=== PATIENT | male | born 1940 | race Caucasian/White ===

== ENCOUNTER 2016-04-29 06:03 | Emergency (ER) | payer OTHER ==
--- NOTE | 2016-04-29 06:39 | ED NURSING NOTES ---
Clinical Report - Nurses [facility] [address] [place] [address] 04/29/2016 6:04 Patient: EFREN VILLEGAS TRIAGE Triage time 06:15. Acuity: LEVEL 4. Chief Complaint: BACK PAIN and WEAKNESS (Efren says he has been having "sciatic-type back pain" that is acting up causing him to fall yesterday x 2 and once this AM. He was seen in our ER last January and given Tramadol and Ibuprofen (he says they provide mild relief); he did see his PCP and was prescribed Gabapentin. He presents to the ED c/o lower back pain radiating to both legs and weakness. Did not hit head when falling, did not loss consciousness.). Alert. No acute distress. SEPSIS SCREEN: Sepsis Screen: negative. Negative (no infection suspected/documented). --06:21 Wolfgang Conley R.N. 06:12 04/29/16. BP: 117/74 (regular adult cuff) taken on the left arm, via an automated monitor, while sitting. HR: 77 (normal rate). RR: 16 (regular, unlabored and normal). O2 saturation: 100% on room air. Temp: 98.1 F (oral). Pain level now: 12/25. --06:21 Wolfgang Conley R.N. Weight: 102 kg stated. Height/Length: 71 inches Per Patient. BMI: 31.4. --06:17 Wolfgang Conley R.N. Medications Allopurinol Oral 100 mg, daily. Atenolol Oral 25 mg, daily. Crestor Oral 5 mg, daily. --06:17 Wolfgang Conley R.N. Gabapentin Oral (Capsule 300 mg) 1 capsule, at bedtime. --06:18 Wolfgang Conley R.N. TraMADol HCl Oral (Tablet 50 mg), daily as needed. --06:18 Wolfgang Conley R.N. Medication/allergy information source: the patient. --06:21 Wolfgang Conley R.N. Allergies No Known Drug Allergy. --06:17 Wolfgang Conley R.N. History Arrived by private vehicle. Historian: patient. Primary physician (Dr. Kimberley Vila). Onset. (about 2 days ago). He has had mild trouble walking. The patient has been limping when trying to walk. He has had severe lower back pain (he reports mild incontinence that is "relatively new.") with radiation to the left leg and right leg. It has been associated with motor weakness and symptoms related to bladder dysfunction. No sensory loss or symptom related to bowel dysfunction. PAST MEDICAL HX: Immunizations: up-to-date and seasonal influenza. SOCIAL HX: Never smoker. No alcohol use or drug use. He has not traveled outside the [place] The patient was not exposed to MRSA. ABUSE ASSESSMENT: Abuse assessment: The patient was asked "Do you feel safe in your home?" and "Has anyone hurt you or threatened to hurt you?". No report of abuse. SELF HARM ASSESSMENT: A self harm assessment was performed. The patient answered "no" to the question "Do you have thoughts of harming or killing yourself?" and "Have you recently had thoughts about harming or killing others?". FALL RISK ASSESSMENT: Fall risk assessment completed. No fall risk identified. NUTRITIONAL RISK ASSESSMENT: The nutritional risk assessment revealed no deficiencies. FUNCTIONAL ASSESSMENT: Functional assessment: no impairments noted. LEARNING NEEDS ASSESSMENT: The learning needs assessment revealed no barriers. SKIN INTEGRITY ASSESSMENT: Skin integrity risk assessment completed. No skin integrity risk identified. --06:21 Wolfgang Conley R.N. PROBLEMS: Lumbar Radiculopathy. Tetanus Status. Knee Effusion. Lumbar Strain. Back Pain. Hypertension. Immunizations. --06:19 Wolfgang Conley R.N. Assessment GENERAL / NEURO / PSYCH: Alert. Oriented X 4. Appears in no acute distress. Luke Coma Scale: 15- eyes open spontaneously (4); best verbal response- oriented x 4 (5); best motor response- obeys commands (6). Patient appears calm and cooperative. ( Presents to the ED using crutches.). RESPIRATORY: Respirations not labored. SKIN: Skin is warm and dry. --06:21 Wolfgang Conley R.N. Interventions ID band on patient. To treatment room. --06:21 Wolfgang Conley R.N. PHYSICAL ASSESSMENT Ambulatory to room. GENERAL / NEURO / PSYCH: Alert. Oriented X 4. Appears in no acute distress. RESPIRATORY: No respiratory distress. Respirations not labored. Breath sounds within normal limits. CVS: Capillary refill less than 2 seconds. GI / : Abdomen soft and nontender. EXTREMITIES: Sensation intact in extremities. BACK: Normal inspection of the neck and back. Soft tissue tenderness in the right mid and lower and left mid and lower lumbar paraspinous region. --06:50 Wolfgang Conley R.N. NURSING PROGRESS NOTES The initial plan of care for this patient has been created This plan of care was discussed with the patient. Reassurance given to the patient. Two patient identifiers checked. Call light placed in reach. Side rails up x 1. Bed placed in lowest position. Brakes of bed on. Patient ready for evaluation- ED physician notified. --06:22 Wolfgang Conley R.N. DISPOSITION / DISCHARGE Departure time: 06:52. Condition at departure: stable. The goals identified in the patient's plan of care were met. No learning barriers present. Discharge instructions provided and reviewed with the patient. Reviewed medication(s) side effects, precautions, dosing and course information. Prescription(s) given to the patient (Efren verbalizes importance of not driving and/or operating heavy machinery while using pain meds. He verbalizes safe, proper use of all prescribed meds for optimal pain control at home.). Activity restrictions (rest) reviewed. Patient verbalized understanding. Written instructions provided in R[place]. ( Efren verbalizes understanding of all d/c instructions including need for f/u with PCP (has appointment on Saturday). He has no questions and voices no concerns at this time.). The patient was discharged by the physician. He was discharged home and unaccompanied at time of discharge. He left the Emergency Department on crutches and via private vehicle. Patient driving. --06:52 Wolfgang Conley R.N. 06:50 04/29/16. BP: deferred. HR: deferred. RR: deferred. O2 saturation: deferred. Temp: deferred. Pain level now deferred. --06:52 Wolfgang Conley R.N. Locked/Released at 04/29/2016 6:52 by Wolfgang Conley R.N.
--- NOTE | 2016-04-29 06:39 | ED CLINICAL REPORT ---
Clinical Report - Physicians/Mid Levels [facility] [address] [place] [place] [address] 04/29/2016 6:04 Patient: EFREN VILLEGAS Time Seen: 06:17; initial patient contact. Arrived- By private vehicle. Historian- patient. HISTORY OF PRESENT ILLNESS Chief Complaint: CHRONIC BACK PAIN. It is still present (worse since 1 day ago). It was gradual in onset. Modifying factors- worsened by bending over and lifting. It is described as being moderate in degree and in the area of the left side of the lower lumbar spine, lower lumbar spine and right side of the lower lumbar spine and radiating to the right buttock and to the left buttock. The quality is noted to be aching and similar to prior episodes. No bladder dysfunction, bowel dysfunction, sensory loss or motor loss. Additional history - Pain will occasionally increase significantly causing him to fall, not due to weakness. Patient denies an injury but injury to the head or chest. Similar symptoms previously: Many times. Recent medical care: ( Was seen here 2 months ago for similar, x ray w/ DJD. Recommended a MRI, has not been done.). Not recently seen/assessed. REVIEW OF SYSTEMS The patient has had back pain. No numbness. No difficulty walking. All systems otherwise negative, except as recorded above. PAST HISTORY Lumbar Radiculopathy. Tetanus Status. Knee Effusion. Lumbar Strain. Back Pain. Hypertension. Medications: TraMADol HCl Oral (Tablet 50 mg), daily as needed. Gabapentin Oral (Capsule 300 mg) 1 capsule, at bedtime. Allopurinol Oral 100 mg, daily. Atenolol Oral 25 mg, daily. Crestor Oral 5 mg, daily. Allergies: No Known Drug Allergy. SOCIAL HISTORY Never smoker. No alcohol use or drug use. ADDITIONAL NOTES The nursing notes have been reviewed with agreement regarding the chief complaint, PMH and patient medications and allergies. PHYSICAL EXAM Vital Signs: 04/29/2016 06:12 BP: 117/74. HR: 77. RR: 16. O2 saturation: 100%. Temp: 98.1 F. Pain level now: 10/10. Have been reviewed as normal. Appearance: Alert. No acute distress. HEENT: Normal external inspection. CVS: Normal heart rate and rhythm. 3/6 mid systolic murmur. Respiratory: No respiratory distress. Breath sounds normal. Back: Soft tissue tenderness in the right lower and left lower lumbar area. Moderate muscle spasm present in the right lower and left lower lumbar area. No vertebral point tenderness. Skin: Skin warm and dry. Normal skin color. Neuro: Oriented X 3. Mood/affect normal. No motor deficit. No sensory deficit. Straight leg raising: negative on the right and negative on the left. Reflex exam: right patellar 2+, left patellar 2+, right Achilles 2+ and left Achilles 2+. PROGRESS AND PROCEDURES Disposition: Discharged home in good condition. Condition: good. INSTRUCTIONS No lifting greater than 10 lbs, no bending or stooping or no prolonged sitting until released. Your Current Medications: CONTINUE TAKING THE FOLLOWING MEDICATIONS: Allopurinol Oral : 100 mg daily. Atenolol Oral : 25 mg daily. Crestor Oral : 5 mg daily. Gabapentin Oral : Capsule 300 mg, 1 capsule at bedtime. TraMADol HCl Oral : Tablet 50 mg, daily, prn. Prescription Medications: Baclofen 10 mg: take 1 orally every 8 hours. Dispense thirty (30). No refills. Tramadol 50 mg: take 1 orally as needed for pain and stiffness. Do not take more than 8 tablets in a 24 hour period. Dispense twenty-five (25). No refills. Follow-up: Follow up with your doctor Saturday as scheduled. Blood pressure screening was not performed during this visit because the patient has an active diagnosis of hypertension. (Electronically signed by Donnie Henry Dr. 04/29/2016 6:48)
--- NOTE | 2016-04-29 06:53 | ED MAR SUMMARY ---
..... Medication Administration Record [facility] [address] [place], [place] [id number] Patient: EFREN VILLEGAS Visit ID: [id number] 76y, M Weight: 102.0 kg Height/Length: 71 in BMI: 31.4 ALLERGIES: No Known Drug Allergy
--- NOTE | 2016-04-29 06:53 | ED MAR SUMMARY ---
..... Medication Administration Record [facility] [address] [place], [place] [id number] Patient: EFREN VILLEGAS Visit ID: [id number] 76y, M Weight: 102.0 kg Height/Length: 71 in BMI: 31.4 ALLERGIES: No Known Drug Allergy
--- NOTE | 2016-04-29 06:53 | ED MED RECONCILIATION SUMMARY ---
Patient: EFREN VILLEGAS Medication Reconciliation Report [facility] VisitID: [id number] [address] [place] [address] 76y, M Registration Date/Time: 04/29/2016 Weight: 102.0 kg Height/Length: 71 in. BMI: 31.4 ALLERGIES: No Known Drug Allergy The patient's Home Medications are listed below: CONTINUE TAKING THE FOLLOWING MEDICATIONS: Allopurinol Oral 100 mg, daily Atenolol Oral 25 mg, daily Crestor Oral 5 mg, daily Gabapentin Oral (300 mg) 1 capsule, at bedtime TraMADol HCl Oral (50 mg), daily The source(s) of the original Home Medication information: patient The following Medications were given to the patient in the Emergency Department: None. The following Medications were prescribed to the patient: Baclofen 10 mg: take 1 orally every 8 hours. Dispense thirty (30). No refills. -- Donnie Henry Dr. Tramadol 50 mg: take 1 orally as needed for pain and stiffness. Do not take more than 8 tablets in a 24 hour period. Dispense twenty-five (25). No refills. -- Donnie Henry Dr.
--- NOTE | 2016-04-29 06:53 | ED MED RECONCILIATION SUMMARY ---
Patient: EFREN VILLEGAS Medication Reconciliation Report [facility] VisitID: [id number] [address] [place] [address] 76y, M Registration Date/Time: 04/29/2016 Weight: 102.0 kg Height/Length: 71 in. BMI: 31.4 ALLERGIES: No Known Drug Allergy The patient's Home Medications are listed below: CONTINUE TAKING THE FOLLOWING MEDICATIONS: Allopurinol Oral 100 mg, daily Atenolol Oral 25 mg, daily Crestor Oral 5 mg, daily Gabapentin Oral (300 mg) 1 capsule, at bedtime TraMADol HCl Oral (50 mg), daily The source(s) of the original Home Medication information: patient The following Medications were given to the patient in the Emergency Department: None. The following Medications were prescribed to the patient: Baclofen 10 mg: take 1 orally every 8 hours. Dispense thirty (30). No refills. -- Donnie Henry Dr. Tramadol 50 mg: take 1 orally as needed for pain and stiffness. Do not take more than 8 tablets in a 24 hour period. Dispense twenty-five (25). No refills. -- Donnie Henry Dr.
--- NOTE | 2016-04-29 06:53 | ED DISCHARGE INSTRUCTIONS ---
Patient: EFREN VILLEGAS General Instructions [facility] VisitID: [id number] [place] [address] 76y, M Registration Date/Time: 04/29/2016 INSTRUCTIONS No lifting greater than 10 lbs, no bending or stooping or no prolonged sitting until released. Your Current Medications: CONTINUE TAKING THE FOLLOWING MEDICATIONS: Allopurinol Oral : 100 mg daily. Atenolol Oral : 25 mg daily. Crestor Oral : 5 mg daily. Gabapentin Oral : Capsule 300 mg, 1 capsule at bedtime. TraMADol HCl Oral : Tablet 50 mg, daily, prn. Prescription Medications: Baclofen 10 mg: take 1 orally every 8 hours. Dispense thirty (30). No refills. Tramadol 50 mg: take 1 orally as needed for pain and stiffness. Do not take more than 8 tablets in a 24 hour period. Dispense twenty-five (25). No refills. Follow-up: Follow up with your doctor Saturday as scheduled. Blood pressure screening was not performed during this visit because the patient has an active diagnosis of hypertension. ADDITIONAL INFORMATION Tramadol Hydrochloride Oral tablet What is this medicine? TRAMADOL (TRA ma dole) is a pain reliever. It is used to treat moderate to severe pain in adults. How should I use this medicine? Take this medicine by mouth with a full glass of water. Follow the directions on the prescription label. If the medicine upsets your stomach, take it with food or milk. Do not take more medicine than you are told to take. Talk to your vigoureux printer regarding the use of this medicine in children. Special care may be needed. What side effects may I notice from receiving this medicine? Side effects that you should report to your doctor or health home care physical therapist as soon as possible: allergic reactions like skin rash, itching or hives, swelling of the face, lips, or tongue breathing difficulties, wheezing confusion itching light headedness or fainting spells redness, blistering, peeling or loosening of the skin, including inside the mouth seizures Side effects that usually do not require medical attention (report to your doctor or health home care physical therapist if they continue or are bothersome): constipation dizziness drowsiness headache nausea, vomiting What may interact with this medicine? Do not take this medicine with any of the following medications: MAOIs like Carbex, Eldepryl, Marplan, Nardil, and Parnate This medicine may also interact with the following medications: alcohol or medicines that contain alcohol antihistamines benzodiazepines bupropion carbamazepine or oxcarbazepine clozapine cyclobenzaprine digoxin furazolidone linezolid medicines for depression, anxiety, or psychotic disturbances medicines for migraine headache like almotriptan, eletriptan, frovatriptan, naratriptan, rizatriptan, sumatriptan, zolmitriptan medicines for pain like pentazocine, buprenorphine, butorphanol, meperidine, nalbuphine, and propoxyphene medicines for sleep muscle relaxants naltrexone phenobarbital phenothiazines like perphenazine, thioridazine, chlorpromazine, mesoridazine, fluphenazine, prochlorperazine, promazine, and trifluoperazine procarbazine warfarin What if I miss a dose? If you miss a dose, take it as soon as you can. If it is almost time for your next dose, take only that dose. Do not take double or extra doses. Where should I keep my medicine? Keep out of the reach of children. Store at room temperature between 15 and 30 degrees C (59 and 86 degrees F). Keep container tightly closed. Throw away any unused medicine after the expiration date. What should I tell my health care provider before I take this medicine? They need to know if you have any of these conditions: brain tumor depression drug abuse or addiction head injury if you frequently drink alcohol containing drinks kidney disease or trouble passing urine liver disease lung disease, asthma, or breathing problems seizures or epilepsy suicidal thoughts, plans, or attempt; a previous suicide attempt by you or a family member an unusual or allergic reaction to tramadol, codeine, other medicines, foods, dyes, or preservatives or trying to get breast-feeding What should I watch for while using this medicine? Tell your doctor or health home care physical therapist if your pain does not go away, if it gets worse, or if you have new or a different type of pain. You may develop tolerance to the medicine. Tolerance means that you will need a higher dose of the medicine for pain relief. Tolerance is normal and is expected if you take this medicine for a long time. Do not suddenly stop taking your medicine because you may develop a severe reaction. Your body becomes used to the medicine. This does NOT mean you are addicted. Addiction is a behavior related to getting and using a drug for a non-medical reason. If you have pain, you have a medical reason to take pain medicine. Your doctor will tell you how much medicine to take. If your doctor wants you to stop the medicine, the dose will be slowly lowered over time to avoid any side effects. You may get drowsy or dizzy. Do not drive, use machinery, or do anything that needs mental alertness until you know how this medicine affects you. Do not stand or sit up quickly, especially if you are an older patient. This reduces the risk of dizzy or fainting spells. Alcohol can increase or decrease the effects of this medicine. Avoid alcoholic drinks. You may have constipation. Try to have a bowel movement at least every 2 to 3 days. If you do not have a bowel movement for 3 days, call your doctor or health home care physical therapist. Your mouth may get dry. Chewing sugarless gum or sucking hard candy, and drinking plenty of water may help. Contact your doctor if the problem does not go away or is severe. You have been given the following additional information: Tramadol Hydrochloride Oral tablet No lifting greater than 10 lbs, no bending or stooping or no prolonged sitting until released. (Electronically signed by Donnie Henry Dr. 04/29/2016 6:48)
--- NOTE | 2016-04-29 06:53 | ED DISCHARGE INSTRUCTIONS ---
Patient: EFREN VILLEGAS General Instructions [facility] VisitID: [id number] [place] [address] 76y, M Registration Date/Time: 04/29/2016 INSTRUCTIONS No lifting greater than 10 lbs, no bending or stooping or no prolonged sitting until released. Your Current Medications: CONTINUE TAKING THE FOLLOWING MEDICATIONS: Allopurinol Oral : 100 mg daily. Atenolol Oral : 25 mg daily. Crestor Oral : 5 mg daily. Gabapentin Oral : Capsule 300 mg, 1 capsule at bedtime. TraMADol HCl Oral : Tablet 50 mg, daily, prn. Prescription Medications: Baclofen 10 mg: take 1 orally every 8 hours. Dispense thirty (30). No refills. Tramadol 50 mg: take 1 orally as needed for pain and stiffness. Do not take more than 8 tablets in a 24 hour period. Dispense twenty-five (25). No refills. Follow-up: Follow up with your doctor Saturday as scheduled. Blood pressure screening was not performed during this visit because the patient has an active diagnosis of hypertension. ADDITIONAL INFORMATION Tramadol Hydrochloride Oral tablet What is this medicine? TRAMADOL (TRA ma dole) is a pain reliever. It is used to treat moderate to severe pain in adults. How should I use this medicine? Take this medicine by mouth with a full glass of water. Follow the directions on the prescription label. If the medicine upsets your stomach, take it with food or milk. Do not take more medicine than you are told to take. Talk to your school athletic director regarding the use of this medicine in children. Special care may be needed. What side effects may I notice from receiving this medicine? Side effects that you should report to your doctor or health health care marketing manager as soon as possible: allergic reactions like skin rash, itching or hives, swelling of the face, lips, or tongue breathing difficulties, wheezing confusion itching light headedness or fainting spells redness, blistering, peeling or loosening of the skin, including inside the mouth seizures Side effects that usually do not require medical attention (report to your doctor or health health care marketing manager if they continue or are bothersome): constipation dizziness drowsiness headache nausea, vomiting What may interact with this medicine? Do not take this medicine with any of the following medications: MAOIs like Carbex, Eldepryl, Marplan, Nardil, and Parnate This medicine may also interact with the following medications: alcohol or medicines that contain alcohol antihistamines benzodiazepines bupropion carbamazepine or oxcarbazepine clozapine cyclobenzaprine digoxin furazolidone linezolid medicines for depression, anxiety, or psychotic disturbances medicines for migraine headache like almotriptan, eletriptan, frovatriptan, naratriptan, rizatriptan, sumatriptan, zolmitriptan medicines for pain like pentazocine, buprenorphine, butorphanol, meperidine, nalbuphine, and propoxyphene medicines for sleep muscle relaxants naltrexone phenobarbital phenothiazines like perphenazine, thioridazine, chlorpromazine, mesoridazine, fluphenazine, prochlorperazine, promazine, and trifluoperazine procarbazine warfarin What if I miss a dose? If you miss a dose, take it as soon as you can. If it is almost time for your next dose, take only that dose. Do not take double or extra doses. Where should I keep my medicine? Keep out of the reach of children. Store at room temperature between 15 and 30 degrees C (59 and 86 degrees F). Keep container tightly closed. Throw away any unused medicine after the expiration date. What should I tell my health care provider before I take this medicine? They need to know if you have any of these conditions: brain tumor depression drug abuse or addiction head injury if you frequently drink alcohol containing drinks kidney disease or trouble passing urine liver disease lung disease, asthma, or breathing problems seizures or epilepsy suicidal thoughts, plans, or attempt; a previous suicide attempt by you or a family member an unusual or allergic reaction to tramadol, codeine, other medicines, foods, dyes, or preservatives or trying to get breast-feeding What should I watch for while using this medicine? Tell your doctor or health health care marketing manager if your pain does not go away, if it gets worse, or if you have new or a different type of pain. You may develop tolerance to the medicine. Tolerance means that you will need a higher dose of the medicine for pain relief. Tolerance is normal and is expected if you take this medicine for a long time. Do not suddenly stop taking your medicine because you may develop a severe reaction. Your body becomes used to the medicine. This does NOT mean you are addicted. Addiction is a behavior related to getting and using a drug for a non-medical reason. If you have pain, you have a medical reason to take pain medicine. Your doctor will tell you how much medicine to take. If your doctor wants you to stop the medicine, the dose will be slowly lowered over time to avoid any side effects. You may get drowsy or dizzy. Do not drive, use machinery, or do anything that needs mental alertness until you know how this medicine affects you. Do not stand or sit up quickly, especially if you are an older patient. This reduces the risk of dizzy or fainting spells. Alcohol can increase or decrease the effects of this medicine. Avoid alcoholic drinks. You may have constipation. Try to have a bowel movement at least every 2 to 3 days. If you do not have a bowel movement for 3 days, call your doctor or health health care marketing manager. Your mouth may get dry. Chewing sugarless gum or sucking hard candy, and drinking plenty of water may help. Contact your doctor if the problem does not go away or is severe. You have been given the following additional information: Tramadol Hydrochloride Oral tablet No lifting greater than 10 lbs, no bending or stooping or no prolonged sitting until released. (Electronically signed by Donnie Henry Dr. 04/29/2016 6:48)
== END 2016-04-29 18:50 | disposition home or self-care (01) ==
LOC: ED SRH 06:03
DX: M54.5 Low back pain (principal); G89.29 Other chronic pain; I10 Essential (primary) hypertension; Z79.899 Other long term (current) drug therapy